=== PATIENT | male | born 1955 | race Two or more races ===

== ENCOUNTER 2020-03-31 10:15 | Inpatient (IN) | payer OTHER ==
[~2020-03-31] VITALS: Ht 170.2 cm; Wt 77.1 kg
[2020-04-10] MEDS ORDERED: OXYC1TAB9 PO (13:37)
[2020-04-10] MEDS ORDERED: DICLOFENAC SODI75 MG PO (13:38)
[2020-04-10] MEDS ORDERED: INTESTINEX680 M1 PO (13:38)
== END 2020-04-10 16:02 | disposition home or self-care (01) | DRG 331 ==
LOC: ADM 10:15 → EDSTATUS 10:15 → SURH 04-06 07:00 → O/R 04-06 08:15 → SURH 04-06 10:15 → SURG 04-06 17:26
PROVIDERS: ADMIT Surgery; ATTEND Surgery
PROC: 0DJD8ZZ Inspection of Lower Intestinal Tract, Via Natural or Artificial Opening Endoscopic (ICD-10-PCS; 2020-04-06)
PROC: 3E0F7GC Introduction of Other Therapeutic Substance into Respiratory Tract, Via Natural or Artificial Opening (ICD-10-PCS; 2020-04-06)
PROC: 0DTN4ZZ Resection of Sigmoid Colon, Percutaneous Endoscopic Approach (ICD-10-PCS; principal; 2020-04-06 07:00)
DX: K57.32 Diverticulitis of large intestine without perforation or abscess without bleeding (principal); J45.20 Mild intermittent asthma, uncomplicated